=== PATIENT | female | born 1930 | race Caucasian/White ===

== ENCOUNTER 2019-07-28 15:16 | Observation (INO) ==
[2019-07-28] MEDS ORDERED: Isovue-370 500 ML BOTTLE IVP ONE (16:04)
[2019-07-28 16:24] LABS: Basophils # 0.1 K/mcL (0.0-0.2); Basophils % 0.7 %; Eosinophils # 0.1 K/mcL (0.0-0.6); Eosinophils % 0.9 %; Hematocrit 35.9 % (35.3-44.9); Hemoglobin 12.3 g/dL (11.5-15.4); Immature Granulocytes % 0.5 % (0-4); Lymphocytes % 15.4 %; Mean Corpuscular HGB Conc 34.3 g/dL (31.6-35.5); Mean Corpuscular Hemoglobin 30.5 pg (28.0-33.3); Mean Corpuscular Volume 89.1 fL (83.0-100.0); Mean Platelet Volume 10.7 fL (9.4-12.4); Monocytes # 1.2 K/mcL (0.0-1.3); Monocytes % 9.1 %; Neutrophils # 9.3 K/mcL (1.6-8.9); Platelet Count 951 K/mcL (140-400); Red Blood Count 4.03 M/mcL (3.82-4.97); Red Cell Distribution Width 13.7 % (11.5-14.5); Segmented Neutrophils % 73.4 %; White Blood Count 12.7 K/mcL (4.3-11.1)
[2019-07-28 16:26] LABS: INR 1.1; Prothrombin Time 12.4 Seconds (9.4-12.1)
[2019-07-28 16:29] LABS: Activated Partial Thrombo Time 36.2 Seconds (26.0-36.0)
[2019-07-28 16:44] LABS: Platelet Estimate Increased (Normal)
[2019-07-28 16:51] LABS: Albumin/Globulin Ratio 1.4 (1.1-2.2); Bilirubin,Indirect 0.4 mg/dL (0.0-1.0); Bilirubin,Total 0.4 mg/dL (0.3-1.0); Calcium 9.2 mg/dL (8.6-10.3); Globulin 2.9 g/dL (2.4-3.5); Potassium 3.9 mEq/L (3.5-5.1); Total Protein 6.9 g/dL (6.4-8.9)
[2019-07-28 17:05] LABS: Bilirubin,Urine Negative (Negative); Blood,Urine Trace (Negative); Clarity,Urine Cloudy (Clear); Color,Urine Yellow (Yellow); Glucose,Urine (UA) Normal (Normal); Ketones,Urine Negative (Negative); Leukocyte Esterase,Urine Large (Negative); Nitrite,Urine Positive (Negative); Protein,Urine 100 mg/dL (Neg-Trace); Specific Gravity,Urine 1.013 (1.010-1.025); Urobilinogen,Urine Normal (Normal)
[2019-07-28 17:07] LABS: Bacteria,Urine Many per hpf (None-Few); Hyaline Casts,Urine None Seen per lpf (None-Few); Squamous Epithelial Cell,Urine Many per lpf (None-Few); WBC,Urine TNTC per hpf (0-3)
[2019-07-28 17:15] LABS: RBC,Urine 0-3 per hpf (0-3)
[2019-07-28] MEDS ORDERED: 0.9 % Sodium Chloride 1,000 ML IVC SCH (17:15)
[2019-07-28] MEDS ORDERED: cefTRIAXone 1,000 MG in Water for inj. (sterile) 10 ML IVP ONE (17:20)
[2019-07-28] MEDS ORDERED: Aspirin 81 MG TAB.CHEW PO ONE (18:29)
[2019-07-29 04:24] LABS: Basophils # 0.1 K/mcL (0.0-0.2); Basophils % 0.8 %; Eosinophils # 0.2 K/mcL (0.0-0.6); Eosinophils % 1.2 %; Hematocrit 34.6 % (35.3-44.9); Hemoglobin 11.7 g/dL (11.5-15.4); Immature Granulocytes % 0.4 % (0-4); Lymphocytes # 2.2 K/mcL (0.6-4.6); Lymphocytes % 16.6 %; Mean Corpuscular HGB Conc 33.8 g/dL (31.6-35.5); Mean Corpuscular Hemoglobin 29.8 pg (28.0-33.3); Mean Platelet Volume 10.7 fL (9.4-12.4); Monocytes # 1.6 K/mcL (0.0-1.3); Monocytes % 11.8 %; Neutrophils # 9.2 K/mcL (1.6-8.9); Platelet Count 933 K/mcL (140-400); Red Blood Count 3.93 M/mcL (3.82-4.97); Segmented Neutrophils % 69.2 %; White Blood Count 13.3 K/mcL (4.3-11.1)
[2019-07-29 05:01] LABS: Large Platelets Present (Not Present); Platelet Estimate Marked Increase (Normal)
[2019-07-29] MEDS: *HR* Heparin 5,000 UNIT/ML VIAL SQ SCH ×2 (06:31→16:36)
[2019-07-29] MEDS ORDERED: Aspirin 81 MG TAB.CHEW PO SCH (09:00)
[2019-07-29] MEDS ORDERED: Cholecalciferol (D-3) 1,000 UNIT (25MCG) TABLET PO SCH (09:00)
[2019-07-29] MEDS ORDERED: Losartan/HCTZ 50-12.5 TABLET PO SCH (09:00)
[2019-07-29] MEDS ORDERED: Ringers Solution, Lactated 1,000 ML IVC ONE (09:17)
[2019-07-29 18:29] VITALS: BP 190/65
== END 2019-07-29 19:05 | disposition home health service (06) ==
LOC: EMEROOARM 15:16 → 2ANU 15:16 → SUATTDRO 18:23 → 2ANU 18:50
PROVIDERS: ADMIT Student in an Organized Health Care Education/Training Program; ATTEND Pharmacist